=== PATIENT | male | born 2000 | race Caucasian/White ===

== ENCOUNTER 2024-05-30 02:52 | Emergency (ER) | payer SELFPAY ==
[2024-05-30] MEDS ORDERED: diphenhydrAMINE 25 MG CAP ONE (03:12)
== END 2024-05-30 03:20 | disposition home or self-care (01) ==
LOC: MADERS 02:52
DX: B35.4 Tinea corporis (principal); K21.9 Gastro-esophageal reflux disease without esophagitis
CPT/HCPCS: 99282